=== PATIENT | male | born 2005 | race Caucasian/White ===

== ENCOUNTER → 2023-03-19 | Outpatient (CLI) | payer BC ==
--- NOTE | 2023-03-19 18:06 | Diagnostic Imaging Report ---
INDICATION: Right-sided scrotal pain. Scrotal sonography performed for the routine fashion, including color Doppler. The right testicle measured 4.7 x 2.2 x 2.9 cm. The left testicle measured 5.2 x 2.2 x 2.7 cm. Both testicles containing color flow with no evidence of mass or torsion. The epididymides appear unremarkable. There is no hydrocele or varicocele. IMPRESSION: Unremarkable scrotal sonography. Dictated by: Dictated on workstation # [id number]
== END ==
LOC: RAD 17:01
PROVIDERS: ATTEND Registered Nurse Critical Care Medicine
DX: N50.811 Right testicular pain (principal); N44.8 Other noninflammatory disorders of the testis; R36.1 Hematospermia
CPT/HCPCS: 76870

== ENCOUNTER 2023-04-08 20:56 | Emergency (ER) | payer BC ==
[~2023-04-08] VITALS: Ht 183 cm; Wt 66.0 kg
[2023-04-08 21:02] VITALS: BP 98/69
--- NOTE | 2023-04-08 21:29 | Diagnostic Imaging Report ---
INDICATION: Cough, chest pain COMPARISON: None available. TECHNIQUE: Frontal and lateral radiographs of the chest dated 04/08/2023. FINDINGS: The cardiac silhouette is within normal limits in size. No significant pulmonary vascular congestion. Pectus excavatum deformity is present. The lungs are clear. No pleural effusion. No pneumothorax. No acute osseous abnormality. IMPRESSION: No acute cardiopulmonary abnormality with mild pectus excavatum deformity present. Dictated by: Dictated on workstation # [id number]
--- NOTE | 2023-04-08 21:30 | ED General ---
General Chief Complaint: Chest Wall Stated Complaint: RIB PAIN/SOA/COUGH Nursing Triage Note: c/o waking up with lower medial rib pain, cough today. denies injury. Source of Information: Patient History of Present Illness Date Seen by Provider: Apr 08, 2023 Time Seen by Provider: 21:03 Initial Comments PT ARRIVES VIA POV FROM HOME PT HAS HAD NON-PRODUCTIVE COUGH FOR THE LAST COUPLE OF DAYS TODAY HE HAS HAD PAIN ALL ACROSS HIS LOWER CHEST AND RIBS PAIN IS WORSE WITH COUGHING OR BREATHING FEELS SHORT OF BREATH NO FEVER/SWEATS/CHILLS HAS NOT TAKEN ANYTHING FOR ANY OF HIS SYMPTOMS NO CHRONIC MEDICAL PROBLEMS OR DAILY MEDICATIONS NO HISTORY OF SMOKING OR VAPING, OCCASIONAL ETOH USE--NONE X 2 WEEKS, NO DRUG USE PCP: NONE Allergies and Home Medications Allergies Coded Allergies: No Known Drug Allergies (Unverified , 04/08/23) Patient Home Medication List Home Medication List Reviewed: Yes Amoxicillin (Amoxicillin) 875 Mg Tablet, 875 MG PO BID Prescribed by: MERCY CRAWFORD on 04/08/232146 Guaifenesin/Dextromethorphan (Mucinex Dm ER 1,200-60 mg Tab) 1,200 Mg-60 Mg Tbmp.12hr, 1 EACH PO BID Prescribed by: MERCY CRAWFORD on 04/08/232146 Review of Systems Review of Systems Constitutional: no symptoms reported EENTM: no symptoms reported Respiratory: see HPI Cardiovascular: see HPI Gastrointestinal: no symptoms reported Genitourinary: no symptoms reported Musculoskeletal: no symptoms reported Skin: no symptoms reported Psychiatric/Neurological: No Symptoms Reported Hematologic/Lymphatic: No Symptoms Reported Immunological/Allergic: no symptoms reported Past Wrpjegl-Atkujn-Nbvwmz Hx Patient Social History Tobacco Use?: No Smoking Status: Never a Smoker Smokeless Tobacco Frequency: Never a User Use of E-Cig and/or Vaping dev: No Use of E-Cig and/or Vaping Oj: Never a User Substance use?: No Alcohol Use?: Yes Alcohol Frequency: Once in a while Pt feels they are or have been: No Immunizations Up To Date First/Initial COVID19 Vaccinat: x3 Past Medical History Surgery/Hospitalization HX: hernia Surgeries: Yes (HERNIA REPAIR) Abdominal Respiratory: No Cardiac: No Neurological: No Genitourinary: No Gastrointestinal: No Musculoskeletal: No Endocrine: No HEENT: No Cancer: No Psychosocial: No Integumentary: No Blood Disorders: No Physical Exam Vital Signs Vital Signs - First Documented 04/08/23 21:02 Temp 36.2 Pulse 59 Resp 16 B/P (MAP) 98/69 (79) Pulse Ox 99 O2 Delivery Room Air Capillary Refill : Less Than 3 Seconds Height, Weight, BMI Height: '" Weight: lbs. oz. kg; 19.00 BMI Method: General Appearance: No Apparent Distress, WD/WN, Other (VERY THIN, DOES NOT APPEAR ILL OR TO BE IN ANY DISCOMFORT OR DISTRESS. SMILING. NO COUGH OR DYSPNEA NOTED. ) HEENT: PERRL/EOMI, Pharynx Normal, Moist Mucous Membranes, Other (RIGHT TM VERY INFLAMED. NOSE NORMAL, PHARYNX NORMAL. NO SINUS TENDERNESS) Neck: Full Range of Motion, Normal Inspection, Non Tender, Supple Respiratory: Normal Breath Sounds, No Accessory Muscle Use, No Respiratory Distress, Other (PES EXCAVATUM; DIFFUSE ANTERIOR LOWER CHEST WALL TENDERNESS--PALPATION REPRODUCES PAIN ) Cardiovascular: Regular Rate, Rhythm, No Edema, No JVD, No Murmur, Normal Peripheral Pulses Gastrointestinal: Non Tender, Soft Back: No CVA Tenderness Extremity: Normal Inspection Neurologic/Psychiatric: Alert, Oriented x3, No Motor/Sensory Deficits, Normal Mood/Affect, instructional aide II-XII Norm as Tested Skin: Normal Color; No Rash Progress/Results/Core Measures Suspected Sepsis SIRS Temperature: Pulse: 59 Respiratory Rate: 16 Blood Pressure 98 /69 Mean: 79 Results/Orders Lab Results Laboratory Tests Test 04/08/23 21:16 Range/Units Influenza Type A (RT-PCR) Not Detected Not Detecte Influenza Type B (RT-PCR) Not Detected Not Detecte SARS-CoV-2 RNA (RT-PCR) Not Detected Not Detecte My Orders Orders - MERCY CRAWFORD DO Chest Pa/Lat (2 View) (04/08/23 21:06) Covid 19 Inhouse Test (04/08/23 21:06) Influenza A And B By Pcr (04/08/23 21:06) Vital Signs/I&O 04/08/23 21:02 Temp 36.2 Pulse 59 Resp 16 B/P (MAP) 98/69 (79) Pulse Ox 99 O2 Delivery Room Air Capillary Refill : Less Than 3 Seconds Blood Pressure Mean: 79 Progress Note : Progress Note VITALS ON ARRIVAL: TEMP 36.2=97.2, HR 59, RR 16 BP 98/69, O2 SAT 99% ON ROOM AIR COVID/FLU NEGATIVE CXR DOES NOT SHOW ANY ACUTE PROCESS UNEVENTFUL ER STAY NO COUGH NO DYSPNEA NO HYPOXIA NO FEVER DISCUSSED TEST RESULTS, ANTICIPATED COURSE, SYMPTOMATIC TREATMENT, MEDICATIONS, NEED FOR FOLLOW UP AND RETURN PRECAUTIONS NO PRIOR VISITS HERE. Diagnostic Imaging Comments CXR--PER RADIOLOGIST REPORT AT 2130 FINDINGS: The cardiac silhouette is within normal limits in size. No significant pulmonary vascular congestion. Pectus excavatum deformity is present. The lungs are clear. No pleural effusion. No pneumothorax. No acute osseous abnormality. IMPRESSION: No acute cardiopulmonary abnormality with mild pectus excavatum deformity present. Reviewed: Reviewed by Me Departure Impression Primary Impression: Upper respiratory infection Additional Impressions: Right otitis media with effusion Chest wall pain Disposition: HOME, SELF-CARE Condition: Stable Admissions Decision to Admit Reason: Admit from ER (General) Departure-Patient Inst. Decision time for Depature: 21:45 Referrals: NO,LOCAL PHYSICIAN (PCP/Family) Primary Care Physician Patient Instructions: Upper Respiratory Infection ED, Ear Infection ED, Costochondritis (DC) Add. Discharge Instructions: TYLENOL 1 GRAM PLUS MOTRIN 800 MG 4 TIMES A DAY FOR PAIN OR FEVER LOTS OF CLEAR LIQUIDS FOLLOW UP WITH DRLiss[facility] IN 4-5 DAYS IF NO BETTER, RETURN TO ER IF WORSE All discharge instructions reviewed with patient and/or family. Voiced understanding. Scripts Guaifenesin/Dextromethorphan (Mucinex Dm ER 1,200-60 mg Tab) 1,200 Mg-60 Mg Tbmp.12hr 1 EACH PO BID, #20 EA Prov: MERCY CRAWFORD DO 04/08/23 Amoxicillin (Amoxicillin) 875 Mg Tablet 875 MG PO BID, #20 TAB Prov: MERCY CRAWFORD DO 04/08/23 MERCY CRAWFORD DO Apr 08, 2023 21:30
[2023-04-08] MEDS ORDERED: AMOX875T2 PO (21:47)
[2023-04-08] MEDS ORDERED: RX-AMOXICILLIN 500 MG CAP #3 PPK PO STA (21:47)
[2023-04-08] MEDS ORDERED: GUAI1TBM19 PO (21:47)
== END 2023-04-08 21:53 | disposition home or self-care (01) ==
LOC: EDUNIT# 20:56 → ER 20:58
DX: J06.9 Acute upper respiratory infection, unspecified (principal); R07.89 Other chest pain; H65.91 Unspecified nonsuppurative otitis media, right ear
CPT/HCPCS: 71046; 87636